=== PATIENT | female | born 1985 | race American Indian/Alaskan Native ===

== ENCOUNTER 2017-02-05 12:32 | Emergency (ER) | payer SELFPAY ==
[2017-02-05 12:57] VITALS: BP 102/76
[2017-02-05] MEDS ORDERED: DUONEB *Not for PRN Use IH ONE ×3 (12:58→14:57)
[2017-02-05] MEDS ORDERED: DELTASONE PO ONE (14:57)
--- NOTE | 2017-02-05 15:01 | Emergency Department Report ---
ED General Adult HPI - General Chief complaint: Adult Asthma Stated complaint: ASHWINI Time Seen by Provider: 02/05/17 14:48 Source: patient Mode of arrival: Ambulatory Limitations: No Limitations - History of Present Illness Initial comments: PT states she recently moved to the area from [place]. PT states she is out of her inhaler. PT states she was having to use her inhaler this week for a cold. PT states her cold symptoms have improved but this am she had asthma exacerbation. PT states once she got to the ED, she was given 2 breathing treatments and she is feeling better. PT states she has been having a productive cough. PT states she is brining up light yellow sputum. Complaint: asthma exacerbation -: Gradual, week(s) (1) Location: chest Severity scale (0 -10): 3 Quality: other (tight ) Consistency: constant Improves with: medication (albuterol inhale and neb ) Worsens with: other (last night while at work, symptoms worsened, works as bar useful or busser ) Associated Symptoms: chest pain (tightness, feels like previous asthma attack. states has had asthma her whole life ) Treatments Prior to Arrival: none - Related Data Previous Rx's Medication Instructions Recorded Last Taken Type Albuterol Sulfate [Ventolin HFA] 2 puff IH Q4H PRN #1 hfa.aer.ad 02/05/17 Unknown Rx Benzonatate [Tessalon Perles] 100 mg PO Q8HR PRN #12 capsule 02/05/17 Unknown Rx predniSONE [Deltasone] 20 mg PO BID #6 tab 02/05/17 Unknown Rx Allergies Allergy/AdvReac Type Severity Reaction Status Date / Time No Known Allergies Allergy Unverified 02/05/17 12:53 ED Review of Systems ROS: Stated complaint: ASWHINI Other details as noted in HPI Comment: All other systems reviewed and negative Constitutional: denies: chills, fever ENT: ear pain (resolved), throat pain (resolved ), congestion (resolved ) Respiratory: cough, shortness of breath, wheezing. denies: stridor Cardiovascular: chest pain Gastrointestinal: denies: abdominal pain Genitourinary: denies: abnormal menses ED Past Medical Hx - Past Medical History Previous Medical History?: Yes Hx Asthma: Yes - Surgical History Additional Surgical History: shoulder - Family History Family history: asthma - Social History Smoking Status: Never Smoker Substance Use Type: None - Medications Home Medications: Home Medications Medication Instructions Recorded Confirmed Last Taken Type Albuterol Sulfate [Ventolin HFA] 2 puff IH Q4H PRN #1 hfa.aer.ad 02/05/17 Unknown Rx Benzonatate [Tessalon Perles] 100 mg PO Q8HR PRN #12 capsule 02/05/17 Unknown Rx predniSONE [Deltasone] 20 mg PO BID #6 tab 02/05/17 Unknown Rx ED Physical Exam - General Limitations: No Limitations General appearance: alert, in no apparent distress - Head Head exam: Present: atraumatic, normocephalic, normal inspection - Eye Eye exam: Present: normal appearance, PERRL, EOMI. Absent: conjunctival injection, nystagmus - ENT ENT exam: Present: normal exam, normal orophraynx, mucous membranes moist, normal external ear exam - Expanded ENT Exam Expanded TM/Canal exam: Effusion: Left TM Mouth exam: Absent: drooling, trismus Throat exam: Positive: normal inspection - Neck Neck exam: Present: normal inspection, tenderness, full ROM. Absent: lymphadenopathy - Respiratory Respiratory exam: Present: wheezes. Absent: respiratory distress, rhonchi, stridor, chest wall tenderness, accessory muscle use - Expanded Respiratory Exam Expanded Location: Wheezes: Right, Left, Upper, Lower - Cardiovascular Cardiovascular Exam: Present: regular rate, normal rhythm, normal heart sounds - GI/Abdominal GI/Abdominal exam: Present: soft. Absent: tenderness - Extremities Exam Extremities exam: Present: normal inspection, full ROM - Back Exam Back exam: Present: normal inspection, full ROM. Absent: tenderness, CVA tenderness (R), CVA tenderness (L) - Neurological Exam Neurological exam: Present: alert, oriented X3 - Psychiatric Psychiatric exam: Present: normal affect, normal mood - Skin Skin exam: Present: warm, dry, intact, normal color ED Course Vital Signs 02/05/17 02/05/17 02/05/17 12:54 13:08 13:15 Temperature 98.5 F Pulse Rate 82 Pulse Rate [ 84 88 Bilateral Upper Lobe] Respiratory 20 18 Rate [Bilateral Upper Lobe] Blood Pressure 102/76 O2 Sat by Pulse 100 Oximetry 02/05/17 02/05/17 13:20 13:28 Temperature Pulse Rate Pulse Rate [ 86 88 Bilateral Upper Lobe] Respiratory 20 20 Rate [Bilateral Upper Lobe] Blood Pressure O2 Sat by Pulse Oximetry - Reevaluation(s) Reevaluation #1: 02/05/17 15:05 PT aware of plan of care. PT initially refused Prednisone, states she does not like steroids. Will dose conservatively. PT has no questions at this time. Reevaluation #2: 02/05/17 15:52 PT states she is feeling better. Left lung sounds clear. exp wheeze to right. PT is not in acute resp distress. PT aware of XR result. PT has no questions at this time. - Pulse Oximetry Interpretation Digit-Finger Initial Pulse Oximetry Readin Actions Taken: none ED Medical Decision Making - Radiology Data Radiology results: report reviewed CXR - NAP - Differential Diagnosis pna, bronchitis, asthma Critical Care Time: No Critical care attestation.: If time is entered above; I have spent that time in minutes in the direct care of this critically ill patient, excluding procedure time. ED Disposition Clinical Impression: Bronchitis, Asthma exacerbation Disposition: DC- TO HOME OR SELFCARE Is pt being admited?: No Does the pt Need Aspirin: No Condition: Stable Instructions: Asthma (ED), Acute Bronchitis (ED), Chronic Bronchitis (ED) Additional Instructions: Use your inhaler as prescribed return to the ED if worsening or concerns Prescriptions: Albuterol Sulfate [Ventolin HFA] 2 puff IH Q4H PRN #1 hfa.aer.ad PRN Reason: Shortness Of Breath Benzonatate [Tessalon Perles] 100 mg PO Q8HR PRN #12 capsule PRN Reason: Cough predniSONE [Deltasone] 20 mg PO BID #6 tab Referrals: BOSTON GARCÍA MD [Primary Care Provider] - 3-5 Days DAMI MCCARTNEY MD [Staff Physician] - 3-5 Days [facility] [Outside] - 3-5 Days Forms: Work/School Release Form(ED) Time of Disposition: 15:54
--- NOTE | 2017-02-05 15:33 | XRay Report ---
CHEST 2 VIEWS INDICATION: Cough, wheeze. COMPARISON: None similar at this institution. FINDINGS: PA and lateral chest radiographs demonstrate normal cardiomediastinal silhouette. Clear, well-expanded lungs. Intact bones. CONCLUSION: No acute disease in the chest. Thank you for the opportunity to participate in this patient's care.
== END 2017-02-05 16:06 | disposition home or self-care (01) ==
LOC: ED 12:32
DX: J45.901 Unspecified asthma with (acute) exacerbation (principal)
CPT/HCPCS: 71020; 94640; 99284; J7512